=== PATIENT | female | born 1955 | race Caucasian/White ===

== ENCOUNTER 2022-03-29 17:55 | Emergency (ER) | payer MEDICARE ==
[2022-03-29 18:39] LABS: CHLORIDE,CL 105 mmol/L (98-107); SODIUM,NA 141 mmol/L (136-145)
[2022-03-29 18:41] LABS: ESTIMATED GFR 81 mL/min (>=60)
[2022-03-29 18:54] LABS: PTT,PARTIAL THROMBOPLSTIN TIME 22.7 SEC (20.5-30.9)
[2022-03-29] MEDS ORDERED: Iopamidol 755 Mg/ML 100 ML Bottle IVPUSH ONE (19:50)
[2022-03-29] MEDS ORDERED: Take Home: predniSONE 20 MG, 2 Tab Pack PO ONE (21:05)
[2022-03-29] MEDS ORDERED: Take Home: Albuterol 18 GM Inhaler, 1 Inhaler Pack INH PRN (21:05)
[2022-03-29] MEDS ORDERED: Take Home: Amoxicillin/Clavulanate K 875-125 MG Tab, 2 Tab Pack PO ONE (21:05)
[2022-03-29] MEDS ORDERED: Take Home: Albuterol 18 GM Inhaler, 1 Inhaler Pack ONE (21:20)
== END 2022-03-29 21:35 | disposition home or self-care (01) ==
LOC: VM.ED 17:55
DX: R07.89 Other chest pain (principal); Z87.891 Personal history of nicotine dependence; Z88.1 Allergy status to other antibiotic agents
CPT/HCPCS: 36415; 71045; 71275; 80053; 84484; 85025; 85379; 85610; 85730; 93005; 93010; 99284; 99285-25; A9270-GY; J7512; Q9967